=== PATIENT | male | born 1965 | race Caucasian/White ===

== ENCOUNTER 2016-10-09 14:49 | Emergency (ER) | payer BC ==
[~2016-10-09] VITALS: Ht 170.2 cm; Wt 85.0 kg
[~2016-10-09 14:49] MED LIST: ASPI81 PO; ATOR10 PO; CLOP75 PO; FISH120014 PO; ISOS30 PO; LISI-360 PO; METO25 PO; NIAC500T18 PO
[2016-10-09 14:51] VITALS: BP 166/87; PULSE 80; RESP 24; TEMP 98; O2SAT 98
--- NOTE | 2016-10-09 15:32 | PD ---
Physical Exam Date Seen by Provider: Oct 09, 2016 Time Seen by Provider: 15:28 Narrative 51 y/o male with question kidney stone. Patient states 2 week hx Hematuria and left flank pain. Now says he cannot pass urine since this am. Pain worsening since this am with radiation into left flank and testicle. +nausea. no fever. Diaphoretic. Patient states PMD diagnosed kidney stone 10 days ago. Here due to worsening pain and inability to urinate. Patients VS stable. Awaiting Bed Placement. Data Data Last Documented VS Vital Signs Date Time Temp Pulse Resp B/P Pulse Ox O2 Delivery O2 Flow Rate FiO2 10/09/16 14:51 98.0 80 24 166/87 98 Room Air [facility] Medical Record Reviewed: Yes Supervised Visit with SHEA: Yes Condition: Stable Alex Andrade Oct 09, 2016 15:32
[2016-10-09 15:40] VITALS: RESP 16; O2SAT 98
[2016-10-09] MEDS ORDERED: METO25TA3 PO (15:40)
[2016-10-09] MEDS ORDERED: PLAV75TA29 PO (15:40)
[2016-10-09] MEDS ORDERED: TAMS0.4C4 PO (15:40)
[2016-10-09] MEDS ORDERED: ATOR40TA16 PO (15:40)
[2016-10-09] MEDS ORDERED: ONDANSETRON HCL 4 MG/2 ML VIAL IV PUSH ONE (15:45)
[2016-10-09] MEDS ORDERED: SODIUM CHLOR 0.9% 1000 ML INJ 1,000 ML IV ONE ×2 (15:45→17:00)
[2016-10-09] MEDS ORDERED: KETOROLAC TROMETHAMINE 30 MG/ML (IVP) VIAL IV PUSH ONE (15:45)
--- NOTE | 2016-10-09 15:57 | PD ---
HPI Chief Complaint: Flank/Kidney Pain Time Seen by Provider: 15:34 Travel History International Travel<30 days: No Contact w/Intl Traveler<30days: No Traveled to known affect area: No History of Present Illness HPI 51 y/o male presents with left flank pain over the past 10 days when it was initially diagnosed through his primary. He states he had an abdominal x-ray. He states that the pain is worse and he is having difficulty urinating. Quality pain is sharp. Severity is severe. He denies other complaints. PFSH Past Medical History Autoimmune Disease: No Blood Disorders: No Heart Rhythm Problems: No Cancer: No Cardiac Catheterization: Yes Cardiovascular Problems: Yes (2013 05 STINT TO HEART) High Cholesterol: Yes Chest Pain: No Congestive Heart Failure: No Diabetes: No Endocrine: No Gastrointestinal Disorders: No Genitourinary: No Hypertension: Yes Immune Disorder: Yes Musculoskeletal: No Neurologic: No Psychiatric: No Respiratory: No Past Surgical History Abdominal Surgery: Yes (HERNIA REPAIR, gall bladder) Cholecystectomy: Yes Coronary Artery Bypass Graft: No Ear Surgery: No Endocrine Surgery: No (tonsilectomy) Eye Surgery: No Genitourinary Surgery: No Oral Surgery: No Other Surgery: Yes (DOUBLE HERNIA REPAIR ) Social History Alcohol Use: No Tobacco Use: No Substance Use: No Allergies-Medications (Allergen,Severity, Reaction): Coded Allergies: Penicillin (Verified Allergy, Severe, Rash, 08/11/14) Reported Meds & Prescriptions Reported Meds & Active Scripts Active Percocet (Oxycodone-Acetaminophen) 5-325 mg Tab 1 Tab PO Q6H PRN Reported Tamsulosin (Tamsulosin HCl) 0.4 Mg Cap 0.4 Mg PO HS Plavix (Clopidogrel Bisulfate) 75 Mg Tab 75 Mg PO DAILY Atorvastatin (Atorvastatin Calcium) 40 Mg Tab 40 Mg PO HS Metoprolol Tartrate 25 Mg Tab 12.5 Mg PO BID Review of Systems Except as stated in HPI: all other systems reviewed are Neg Physical Exam Narrative GENERAL: Well-nourished, well-developed patient. uncomfortable SKIN: Warm and dry. HEAD: Normocephalic and atraumatic. EYES: No injection or drainage. ENT: No nasal drainage noted. NECK: Supple, trachea midline. CARDIOVASCULAR: Regular rate and rhythm RESPIRATORY: no increased effort. No accessory muscle use. GASTROINTESTINAL: Abdomen soft, ttp on left, nondistended. EXTREMITIES: No edema. NEUROLOGICAL: Awake and alert. Motor and sensory grossly within normal limits. Normal speech. Data Data Last Documented VS Vital Signs Date Time Temp Pulse Resp B/P Pulse Ox O2 Delivery O2 Flow Rate FiO2 10/09/16 16:58 16 10/09/16 15:40 98 Room Air 10/09/16 14:51 98.0 80 166/87 Orders Complete Blood Count With Diff (10/09/16 15:35) Comprehensive Metabolic Panel (10/09/16 15:35) Urinalysis - C+S If Indicated (10/09/16 15:35) Lipase (10/09/16 15:35) Iv Access Insert/Monitor (10/09/16 15:35) Oximetry (10/09/16 15:35) Ketorolac Inj (Toradol Inj) (10/09/16 15:45) Ondansetron Inj (Zofran Inj) (10/09/16 15:45) Sodium Chlor 0.9% 1000 Ml Inj (Ns 1000 M (10/09/16 15:45) Ct Abd/Pel W/O Iv Contrast (10/09/16 ) Sodium Chlor 0.9% 1000 Ml Inj (Ns 1000 M (10/09/16 17:00) Labs Laboratory Tests Test 10/09/16 10/09/16 15:45 17:55 White Blood Count 6.5 TH/MM3 Red Blood Count 4.32 MIL/MM3 Hemoglobin 13.7 GM/DL Hematocrit 40.0 % Mean Corpuscular Volume 92.6 FL Mean Corpuscular Hemoglobin 31.8 PG Mean Corpuscular Hemoglobin 34.3 % Concent Red Cell Distribution Width 12.5 % Platelet Count 187 TH/MM3 Mean Platelet Volume 9.0 FL Neutrophils (%) (Auto) 63.1 % Lymphocytes (%) (Auto) 23.7 % Monocytes (%) (Auto) 10.0 % Eosinophils (%) (Auto) 2.7 % Basophils (%) (Auto) 0.5 % Neutrophils # (Auto) 4.1 TH/MM3 Lymphocytes # (Auto) 1.5 TH/MM3 Monocytes # (Auto) 0.6 TH/MM3 Eosinophils # (Auto) 0.2 TH/MM3 Basophils # (Auto) 0.0 TH/MM3 CBC Comment DIFF FINAL Differential Comment Sodium Level 137 MEQ/L Potassium Level 3.9 MEQ/L Chloride Level 104 MEQ/L Carbon Dioxide Level 24.9 MEQ/L Anion Gap 8 MEQ/L Blood Urea Nitrogen 14 MG/DL Creatinine 0.97 MG/DL Estimat Glomerular Filtration 81 ML/MIN Rate Random Glucose 109 MG/DL Calcium Level 9.0 MG/DL Total Bilirubin 0.6 MG/DL Aspartate Amino Transf 23 U/L (AST/SGOT) Alanine Aminotransferase 38 U/L (ALT/SGPT) Alkaline Phosphatase 71 U/L Total Protein 7.3 GM/DL Albumin 4.3 GM/DL Lipase 145 U/L Urine Color YELLOW Urine Turbidity CLEAR Urine pH 5.5 Urine Specific [place] 1.017 Urine Protein NEG mg/dL Urine Glucose (UA) NEG mg/dL Urine Ketones NEG mg/dL Urine Occult Blood MOD Urine Nitrite NEG Urine Bilirubin NEG Urine Urobilinogen LESS THAN 2.0 MG/DL Urine Leukocyte Esterase NEG MDM Medical Decision Making Medical Screen Exam Complete: Yes Emergency Medical Condition: Yes Medical Record Reviewed: Yes (pmh confirmed) Interpretation(s) CBC & BMP Diagram 10/09/16 15:45 Last 24 hours Impressions Abdomen/Pelvis CT 10/09/16 0000 Signed Impressions: Service Date/Time: Sunday, October 09, 2016 16:11 - CONCLUSION: 1. Distal obstrusting calculus on the left measuring 5 mm. 2. Diverticulosis. 3. Fat-containing umbilical hernia. 4. Cholecystectomy. Pete Castillo MD ua no uti Differential Diagnosis stone, uti, pancreatitis, acute renal failure... Narrative Course will check labs, ua, ct and dose with ivf, zofran, toradol and reeval ed workup with kidney stone with hydronephrosis. Patient with normal renal function, no UTI, pain improved and wanting to go home.Patient denies any new complaints and states that they are feeling better. Patient happy with care, all questions answered. Patient knows that follow up is incumbent on them and to return to the emergency room immediately if new or worsening symptoms develop. Patient given strict return precautions, vitals reviewed and are normal , agrees to further workup as an outpatient. Diagnosis Primary Impression: Kidney stone Additional Impression: Hydronephrosis Qualified Code: N13.30 - Hydronephrosis, unspecified hydronephrosis type Referrals: Urologist 1 day Patient Instructions: General Instructions Additional Instructions: return as needed, percocet as needed for severe pain-don't take while driving Med/Other Pt SpecificInfo: Prescription(s) given Scripts Oxycodone-Acetaminophen (Percocet)5-325 mg Tab1 Tab PO Q6H PRN (PAIN) #15 TAB Ref 0 Prov:Nia Navarrete MD 10/09/16 Disposition: 01 DISCHARGE HOME Condition: Stable Nia Navarrete MD Oct 09, 2016 15:57 Nia Navarrete MD Oct 09, 2016 15:57
[2016-10-09 16:24] LABS: AUTOMATED NEUTROPHIL # 4.1 TH/MM3 (1.8-7.7); BASOPHIL % 0.5 % (0.0-2.0); EOSINOPHIL # 0.2 TH/MM3 (0-0.4); EOSINOPHIL % 2.7 % (0.0-4.0); HEMO FLAGS DIFF FINAL; LYMPH % 23.7 % (9.0-44.0); LYMPHOCYTE # 1.5 TH/MM3 (1.0-4.8); MEAN CELL VOLUME 92.6 FL (80.0-100.0); MEAN CORPUSCULAR HEMOGLOBIN 31.8 PG (27.0-34.0); MEAN CORPUSCULAR HGB CONC 34.3 % (32.0-36.0); NEUT % 63.1 % (16.0-70.0); PLATELET COUNT 187 TH/MM3 (150-450); RED BLOOD COUNT 4.32 MIL/MM3 (4.50-5.90); RED CELL DISTRIBUTION WIDTH 12.5 % (11.6-17.2); WHITE BLOOD COUNT 6.5 TH/MM3 (4.0-11.0)
--- NOTE | 2016-10-09 16:29 | RADRPT ---
EXAM DATE/TIME: 10/09/2016 16:11 CORRECTION Corrected on: October 09, 2016; [facility] COMPARISON: No previous studies available for comparison. INDICATIONS : Left flank pain today. ORAL CONTRAST: No oral contrast ingested. RADIATION DOSE: 8.51 CTDIvol (mGy) MEDICAL HISTORY : Hypertension. Renal calculi. SURGICAL HISTORY : Cholecystectomy. hernia repair ENCOUNTER: Initial ACUITY: 1 day PAIN SCALE: 7/10 LOCATION: Left flank TECHNIQUE: Volumetric scanning of the abdomen and pelvis was performed. Using automated exposure control and ad justment of the mA and/or kV according to patient size, radiation dose was kept as low as reasonably achievable to obtain optimal diagnostic quality images. FINDINGS: LOWER LUNGS: The visualized lower lungs are clear. LIVER: Homogeneous density without lesion. There is no dilation of the biliary tree. Cholecystectomy clips . SPLEEN: Normal size without lesion. PANCREAS: Within normal limits. KIDNEYS: 5 mm distal obstructing calculus in the left ureter causing severe hydronephrosis and hydroureter. Ri ght kidney unremarkable. ADRENAL GLANDS: Within normal limits. VASCULAR: There is no aortic aneurysm. BOWEL/MESENTERY: Diverticulosis. There is no free intraperitoneal air or fluid. ABDOMINAL WALL: Fat-containing umbilical hernia. RETROPERITONEUM: There is no lymphadenopathy. BLADDER: No wall thickening or mass. REPRODUCTIVE: Within normal limits. INGUINAL: There is no lymphadenopathy or hernia. MUSCULOSKELETAL: Within normal limits for patient age. CONCLUSION: 1. Distal obstrusting calculus on the left measuring 5 mm. 2. Diverticulosis. 3. Fat-containing umbilical hernia. 4. Cholecystectomy. Pete Castillo MD on October 09, 2016 at 16:24 Board Certified Radiologist. This report was verified electronically. Pete Castillo MD on October 09, 2016 at 16:34 Board Certified Radiologist. This report was verified electronically.
[2016-10-09 16:40] LABS: ANION GAP 8 MEQ/L (5-15); AST (GOT) 23 U/L (15-37); BICARBONATE 24.9 MEQ/L (21.0-32.0); BLOOD UREA NITROGEN 14 MG/DL (7-18); CHLORIDE 104 MEQ/L (98-107); GLOMERULAR FILTRATION RATE 81 ML/MIN (>89); POTASSIUM 3.9 MEQ/L (3.5-5.1); SODIUM (NA) 137 MEQ/L (136-145)
[2016-10-09 16:41] LABS: ALT (GPT) 38 U/L (12-78)
[2016-10-09 16:43] LABS: ALKALINE PHOSPHATASE 71 U/L (45-117); TOTAL BILIRUBIN ADULT 0.6 MG/DL (0.2-1.0)
[2016-10-09 16:58] VITALS: RESP 16
[2016-10-09 18:22] LABS: BLOOD, URINE MOD (NEG); GLUCOSE,URINE NEG (NEG); KETONE, URINE NEG (NEG); NITRITE,URINE NEG (NEG); PH, URINE 5.5 (5.0-8.5); URINE COLOR YELLOW (YELLW/STRAW)
[2016-10-09] MEDS ORDERED: PERC5TAB12 PO (18:32)
[2016-10-09 18:45] LABS: CULTURE IF INDICATED CULT NOT INDICATED; SQUAMOUS EPITHELIAL CELL URINE 0-5 /hpf (0-5); WBC, URINE 0-2 /hpf (0-5)
== END 2016-10-09 18:54 | disposition home or self-care (01) ==
LOC: NEPE 14:49
DX: N13.2 Hydronephrosis with renal and ureteral calculous obstruction (principal); E78.00 Pure hypercholesterolemia, unspecified; I10 Essential (primary) hypertension
CPT/HCPCS: 74176; 80053; 81001; 83690; 85025; 96361; 96374; 96375; 99285; J1885; J2405; J7030

== ENCOUNTER 2016-10-30 00:04 | Emergency (ER) | payer BC ==
[~2016-10-30] VITALS: Ht 170.2 cm; Wt 86.0 kg
[~2016-10-30 00:04] MED LIST changes: -ASPI81 PO; -ATOR10 PO; +ATOR40TA16 PO; -CLOP75 PO; -FISH120014 PO; -ISOS30 PO; -LISI-360 PO; -METO25 PO; +METO25TA3 PO; -NIAC500T18 PO; +PERC5TAB12 PO; +PLAV75TA29 PO; +TAMS0.4C4 PO
[2016-10-30 00:06] VITALS: BP 171/92; PULSE 81; RESP 16; TEMP 97.6; O2SAT 98
[2016-10-30] MEDS ORDERED: SODIUM CHLOR 0.9% 1000 ML INJ 1,000 ML IV ONE (00:22)
[2016-10-30] MEDS ORDERED: SODIUM CHLORIDE 0.9% FLUSH 10 ML FLUSH IVF PRN (00:30)
[2016-10-30] MEDS ORDERED: KETOROLAC TROMETHAMINE 30 MG/ML (IVP) VIAL IVP ONE (00:30)
[2016-10-30] MEDS ORDERED: ONDANSETRON HCL 4 MG/2 ML VIAL IVP ONE (00:30)
[2016-10-30] MEDS ORDERED: HYDROmorphone HCL PF 1 MG/ML VIAL IVS ONE (00:30)
[2016-10-30] MEDS ORDERED: TAMSULOSIN HCL 0.4 MG CAP PO ONE (00:45)
[2016-10-30] MEDS ORDERED: ASPI81CH CHEW (00:45)
[2016-10-30] MEDS ORDERED: BP MED PO (00:47)
[2016-10-30 00:48] LABS: BASOPHIL % 0.5 % (0.0-2.0); EOSINOPHIL # 0.3 TH/MM3 (0-0.4); EOSINOPHIL % 4.3 % (0.0-4.0); HEMATOCRIT 38.6 % (39.0-51.0); HEMO FLAGS DIFF FINAL; LYMPH % 33.5 % (9.0-44.0); MEAN CELL VOLUME 93.2 FL (80.0-100.0); MEAN CORPUSCULAR HEMOGLOBIN 32.2 PG (27.0-34.0); MEAN CORPUSCULAR HGB CONC 34.6 % (32.0-36.0); MONO % 9.5 % (0.0-8.0); NEUT % 52.2 % (16.0-70.0); PLATELET COUNT 204 TH/MM3 (150-450); RED BLOOD COUNT 4.14 MIL/MM3 (4.50-5.90); RED CELL DISTRIBUTION WIDTH 12.5 % (11.6-17.2); WHITE BLOOD COUNT 5.8 TH/MM3 (4.0-11.0)
--- NOTE | 2016-10-30 00:56 | RADRPT ---
EXAM DATE/TIME: 10/30/2016 00:30 [facility] COMPARISON: No previous studies available for comparison. INDICATIONS : Left flank pain. ORAL CONTRAST: No oral contrast ingested. RADIATION DOSE: 15.67 CTDIvol (mGy) MEDICAL HISTORY : Cardiovascular disease. Hypertension. Hernia. SURGICAL HISTORY : Cholecystectomy. Tonsillectomy.Hernia repair. ENCOUNTER: Initial ACUITY: 1 day PAIN SCALE: 10/10 LOCATION: Left flank TECHNIQUE: Volumetric scanning of the abdomen and pelvis was performed. Using automated exposure control and ad justment of the mA and/or kV according to patient size, radiation dose was kept as low as reasonably achievable to obtain optimal diagnostic quality images. DICOM format image data is available electro nically for review and comparison. FINDINGS: LOWER LUNGS: The visualized lower lungs are clear. LIVER: Homogeneous density without lesion. There is no dilation of the biliary tree. Cholecystectomy clips. SPLEEN: Normal size without lesion. PANCREAS: Within normal limits. KIDNEYS: Normal in size and shape. There is no mass, stone, or hydronephrosis on the right. Moderate hydronep hrosis on the left secondary to a distal left ureteral calculus measuring 5 mm.. ADRENAL GLANDS: Within normal limits. VASCULAR: There is no aortic aneurysm. BOWEL/MESENTERY: Scattered diverticulosis without diverticulitis. There is no free intraperitoneal air or fluid. ABDOMINAL WALL: Fat containing abdominal wall hernia in the periumbilical region and slightly superiorly. RETROPERITONEUM: There is no lymphadenopathy. BLADDER: No wall thickening or mass. REPRODUCTIVE: Within normal limits. INGUINAL: There is no lymphadenopathy or hernia. MUSCULOSKELETAL: Within normal limits for patient age. CONCLUSION: 1. Moderate obstructive uropathy on the left secondary to distal ureteral calculus measuring 5 mm. 2. Status post cholecystectomy. 3. Fat-containing abdominal wall hernias. 4. Scattered diverticulosis without diverticulitis. Pete Castillo MD on October 30, 2016 at 0:52 Board Certified Radiologist. This report was verified electronically.
[2016-10-30 01:22] LABS: ALKALINE PHOSPHATASE 75 U/L (45-117); TOTAL BILIRUBIN ADULT 0.4 MG/DL (0.2-1.0)
[2016-10-30 01:25] LABS: ALT (GPT) 42 U/L (12-78); ANION GAP 7 MEQ/L (5-15); AST (GOT) 28 U/L (15-37); BICARBONATE 29.5 MEQ/L (21.0-32.0); BLOOD UREA NITROGEN 15 MG/DL (7-18); CHLORIDE 105 MEQ/L (98-107); GLOMERULAR FILTRATION RATE 63 ML/MIN (>89); POTASSIUM 3.9 MEQ/L (3.5-5.1); SODIUM (NA) 141 MEQ/L (136-145)
--- NOTE | 2016-10-30 01:30 | PD ---
HPI Chief Complaint: Flank/Kidney Pain Time Seen by Provider: 00:22 Travel History International Travel<30 days: No Contact w/Intl Traveler<30days: No Traveled to known affect area: No History of Present Illness HPI 51-year-old male came to the emergency room with history of severe left flank pain going down to his testicular area. Patient says he has history of kidney stones and has passed multiple stones. He was in this emergency room 3 weeks ago and was told he had a 5 mm stone on the left side. Patient says his pain had subsided since then but then came back again about 3 hours ago. He's vomited numerous times. He looks to be in significant discomfort. No history of fever or chills. No history of hematuria. [facility], [facility] Past Medical History Narrative Medical List of his past medical, surgical, social and family history is reviewed from the nursing note. Autoimmune Disease: No Blood Disorders: No Heart Rhythm Problems: No Cancer: No Cardiac Catheterization: Yes Cardiovascular Problems: Yes (2013 05 STINT TO HEART) High Cholesterol: Yes Chest Pain: No Congestive Heart Failure: No Diabetes: No Diminished Hearing: No Endocrine: No Gastrointestinal Disorders: No Genitourinary: No Hypertension: Yes Immune Disorder: Yes Implanted Vascular Access Dvce: Yes Musculoskeletal: No Neurologic: No Psychiatric: No Respiratory: No Past Surgical History Abdominal Surgery: Yes (HERNIA REPAIR, gall bladder) Cholecystectomy: Yes Coronary Artery Bypass Graft: No Ear Surgery: No Eye Surgery: No Genitourinary Surgery: No Oral Surgery: No Other Surgery: Yes (DOUBLE HERNIA REPAIR ) Social History Alcohol Use: No Tobacco Use: No Substance Use: No Allergies-Medications (Allergen,Severity, Reaction): Coded Allergies: Penicillin (Verified Allergy, Severe, Rash, 10/30/16) Comments List of his allergies reviewed from the nursing note. Reported Meds & Prescriptions Reported Meds & Active Scripts Active Zofran Odt (Ondansetron Odt) 4 Mg Tab 4 Mg SL Q6HR PRN Flomax (Tamsulosin HCl) 0.4 Mg Cap 0.4 Mg PO HS Hydrocodone-Acetaminophen 7.5-300 Mg Tab 1 Tab PO Q6H PRN Reported [2nd BP MED] 10 Mg PO DAILY Aspirin 81 Mg Chew 81 Mg CHEW DAILY Plavix (Clopidogrel Bisulfate) 75 Mg Tab 75 Mg PO DAILY Atorvastatin (Atorvastatin Calcium) 40 Mg Tab 40 Mg PO HS Metoprolol Tartrate 25 Mg Tab 12.5 Mg PO BID Narrative Medication List of his home medications reviewed from the nursing note. Review of Systems Except as stated in HPI: all other systems reviewed are Neg Physical Exam Narrative GENERAL: Awake, alert, significant distress SKIN: Pale and diaphoretic HEAD: Atraumatic. Normocephalic. EYES: Pupils equal and round. No scleral icterus. No injection or drainage. ENT: No nasal bleeding or discharge. Mucous membranes pink and moist. NECK: Trachea midline. No JVD. CARDIOVASCULAR: Regular rate and rhythm. No murmur appreciated. RESPIRATORY: No accessory muscle use. Clear to auscultation. Breath sounds equal bilaterally. GASTROINTESTINAL: Abdomen soft, non-tender, nondistended. Hepatic and splenic margins not palpable. MUSCULOSKELETAL: No obvious deformities. No clubbing. No cyanosis. No edema. NEUROLOGICAL: Awake and alert. No obvious cranial nerve deficits. Motor grossly within normal limits. Normal speech. PSYCHIATRIC: Appropriate mood and affect; insight and judgment normal. Data Data Last Documented VS Orders Complete Blood Count With Diff (10/30/16:22) Comprehensive Metabolic Panel (10/30/16 00:22) Urinalysis - C+S If Indicated (10/30/16 00:22) Ct Abd/Pel W/O Iv Contrast (10/30/16:22) Ecg Monitoring (10/30/16:22) Iv Access Insert/Monitor (10/30/16:22) Ketorolac Inj (Toradol Inj) (10/30/16 00:30) Ondansetron Inj (Zofran Inj) (10/30/16 00:30) Sodium Chloride 0.9% Flush (Ns Flush) (10/30/16 00:30) Sodium Chlor 0.9% 1000 Ml Inj (Ns 1000 M (10/30/16 00:22) Hydromorphone Pf Inj (Dilaudid Pf Inj) (10/30/16 00:30) Tamsulosin (Flomax) (10/30/16 00:45) Morphine Inj (Morphine Inj) (10/30/16 02:30) Labs Laboratory Tests Test 10/30/16 10/30/16 00:35 01:34 White Blood Count 5.8 TH/MM3 Red Blood Count 4.14 MIL/MM3 Hemoglobin 13.4 GM/DL Hematocrit 38.6 % Mean Corpuscular Volume 93.2 FL Mean Corpuscular Hemoglobin 32.2 PG Mean Corpuscular Hemoglobin 34.6 % Concent Red Cell Distribution Width 12.5 % Platelet Count 204 TH/MM3 Mean Platelet Volume 8.9 FL Neutrophils (%) (Auto) 52.2 % Lymphocytes (%) (Auto) 33.5 % Monocytes (%) (Auto) 9.5 % Eosinophils (%) (Auto) 4.3 % Basophils (%) (Auto) 0.5 % Neutrophils # (Auto) 3.0 TH/MM3 Lymphocytes # (Auto) 2.0 TH/MM3 Monocytes # (Auto) 0.6 TH/MM3 Eosinophils # (Auto) 0.3 TH/MM3 Basophils # (Auto) 0.0 TH/MM3 CBC Comment DIFF FINAL Differential Comment Sodium Level 141 MEQ/L Potassium Level 3.9 MEQ/L Chloride Level 105 MEQ/L Carbon Dioxide Level 29.5 MEQ/L Anion Gap 7 MEQ/L Blood Urea Nitrogen 15 MG/DL Creatinine 1.20 MG/DL Estimat Glomerular Filtration 63 ML/MIN Rate Random Glucose 117 MG/DL Calcium Level 9.2 MG/DL Total Bilirubin 0.4 MG/DL Aspartate Amino Transf 28 U/L (AST/SGOT) Alanine Aminotransferase 42 U/L (ALT/SGPT) Alkaline Phosphatase 75 U/L Total Protein 7.5 GM/DL Albumin 4.3 GM/DL Urine Color YELLOW Urine Turbidity HAZY Urine pH 6.5 Urine Specific [place] 1.023 Urine Protein TRACE mg/dL Urine Glucose (UA) NEG mg/dL Urine Ketones NEG mg/dL Urine Occult Blood MOD Urine Nitrite NEG Urine Bilirubin NEG Urine Urobilinogen LESS THAN 2.0 MG/DL Urine Leukocyte Esterase NEG Urine RBC 137 /hpf Urine WBC 8 /hpf Urine Amorphous Sediment MOD Urine Bacteria RARE /hpf Urine Mucus FEW /lpf Microscopic Urinalysis Comment CULT NOT INDICATED MDM Medical Decision Making Medical Screen Exam Complete: Yes Emergency Medical Condition: Yes Medical Record Reviewed: Yes Differential Diagnosis Renal colic, pyelonephritis, testicular torsion Narrative Course 1:29 AM given the fact that patient has history of multiple renal stones in the classic history I decided to do a CT scan which does show a 5 mm stone at the UVJ with moderate obstruction. Blood test results otherwise are within normal limit. Awaiting for the UA. Patient was adequately pain medicated. I've given him by mouth Flomax as well. I'll reassess him in a bit. 2:[address] scan was read as 5 mm stone at the left UVJ with moderate obstruction. UA is negative for UTI. I reassessed the patient and he says his pain is down to 2. He is comfortable going home. I've given him instructions. He will go home with prescription. Procedures EKG Prior to Arrival: No Diagnosis Primary Impression: Ureteral colic Additional Impression: Hydroureter Referrals: Tank Hernandez MD 2 days Additional Instructions: Please return to the ER if the condition worsens or any other new concerns. Take the medications as per the prescription direction. Please call the urologist office on Monday to get an appointment as early as possible. Drink lots of fluid. Med/Other Pt SpecificInfo: Prescription(s) given Scripts Ondansetron Odt (Zofran Odt)4 Mg Tab4 Mg SL Q6HR PRN (Nausea/Vomiting) #30 TAB Ref 0 Prov:Bandar Meier MD 10/30/16 Tamsulosin (Flomax)0.4 Mg Cap0.4 Mg PO HS #30 CAP Ref 0 Prov:Bandar Meier MD 10/30/16 Hydrocodone-Acetaminophen 7.5-300 Mg Tab1 Tab PO Q6H PRN (PAIN) #15 TAB Ref 0 Prov:Bandar Meier MD 10/30/16 Disposition: DISCHARGE HOME Condition: Stable Bandar Meier MD Oct 30, 2016 01:30 Prov:Bandar Meier MD 10/30/16 Disposition: DISCHARGE HOME Condition: Bandar Johns MD Oct 30, 2016 01:30
[2016-10-30 02:20] LABS: BACTERIA, URINE RARE /hpf; BLOOD, URINE MOD (NEG); COMMENT (UR) CULT NOT INDICATED; CULTURE IF INDICATED CULT NOT INDICATED; GLUCOSE,URINE NEG (NEG); KETONE, URINE NEG (NEG); MUCUS URINE FEW /lpf (OCC); NITRITE,URINE NEG (NEG); PH, URINE 6.5 (5.0-8.5); URINE COLOR YELLOW (YELLW/STRAW)
[2016-10-30] MEDS ORDERED: TAMS5CAP PO (02:29)
[2016-10-30] MEDS ORDERED: HYDR-2376 PO (02:29)
[2016-10-30] MEDS ORDERED: MORPHINE SULFATE 8 MG/ML INJ IV PUSH ONE (02:30)
[2016-10-30] MEDS ORDERED: ZOFR4TAB3 SL (02:30)
== END 2016-10-30 03:12 | disposition home or self-care (01) ==
LOC: NEPE 00:04
DX: N23 Unspecified renal colic (principal); N13.4 Hydroureter
CPT/HCPCS: 74176; 80053; 81001; 85025; 96374; 96375; 99285; J1170; J1885; J2270; J2405; J7030

== ENCOUNTER 2017-02-24 12:51 | Emergency (ER) | payer BC ==
[~2017-02-24] VITALS: Ht 170.2 cm; Wt 90.0 kg
[~2017-02-24 12:51] MED LIST changes: +ASPI81CH CHEW; +BP MED PO; +HYDR-2376 PO; -PERC5TAB12 PO; -TAMS0.4C4 PO; +TAMS5CAP PO; +ZOFR4TAB3 SL
[2017-02-24 12:54] VITALS: BP 177/100; PULSE 83; RESP 20; TEMP 98.6; O2SAT 96
--- NOTE | 2017-02-24 13:26 | PD ---
HPI Chief Complaint: Flank/Kidney Pain Time Seen by Provider: 13:11 Travel History International Travel<30 days: No Contact w/Intl Traveler<30days: No Traveled to known affect area: No History of Present Illness HPI This patient complains of left flank pain. It radiates to his left groin. He has history of multiple kidney stones and this feels similar. He denies fever or injury. Symptoms severity is moderate to severe in nature. Duration one day. No alleviating factors. There are no exacerbating factors. He had an outpatient x-ray yesterday but has no idea what it showed. PFSH Past Medical History Autoimmune Disease: No Blood Disorders: No Heart Rhythm Problems: No Cancer: No Cardiac Catheterization: Yes Cardiovascular Problems: Yes (2013 05 STINT TO HEART) High Cholesterol: Yes Chest Pain: No Congestive Heart Failure: No Diabetes: No Diminished Hearing: No Endocrine: No Gastrointestinal Disorders: No Genitourinary: No Hypertension: Yes Immune Disorder: Yes Implanted Vascular Access Dvce: Yes Musculoskeletal: No Neurologic: No Psychiatric: No Respiratory: No Tetanus Vaccination: Unknown Influenza Vaccination: No Past Surgical History Abdominal Surgery: Yes (HERNIA REPAIR) Cholecystectomy: Yes Coronary Artery Bypass Graft: No Ear Surgery: No Eye Surgery: No Genitourinary Surgery: No Oral Surgery: No Tonsillectomy: Yes Other Surgery: Yes (DOUBLE HERNIA REPAIR ) Social History Alcohol Use: No Tobacco Use: No Substance Use: No Allergies-Medications (Allergen,Severity, Reaction): Coded Allergies: penicillin G (Unverified Allergy, Severe, Rash, 02/24/17) Reported Meds & Prescriptions Reported Meds & Active Scripts Active Percocet (Oxycodone-Acetaminophen) 10-325 mg Tab 1 Tab PO Q6H PRN Flomax (Tamsulosin HCl) 0.4 Mg Cap 0.4 Mg PO HS Reported [2nd BP MED] 10 Mg PO DAILY Aspirin 81 Mg Chew 81 Mg CHEW DAILY Plavix (Clopidogrel Bisulfate) 75 Mg Tab 75 Mg PO DAILY Atorvastatin (Atorvastatin Calcium) 40 Mg Tab 40 Mg PO HS Metoprolol Tartrate 25 Mg Tab 12.5 Mg PO BID Review of Systems General / Constitutional: No: Fever Eyes: No: Visual changes HENT: No: Headaches Cardiovascular: No: Chest Pain or Discomfort Respiratory: No: Shortness of Breath Gastrointestinal: Positive: Nausea, No: Abdominal Pain Genitourinary: Positive: Flank Pain, No: Dysuria Musculoskeletal: Positive: Pain Skin: No Rash Neurologic: No: Weakness Psychiatric: No: Depression Endocrine: No: Polydipsia Hematologic/Lymphatic: No: Easy Bruising Physical Exam Narrative GENERAL: Well-nourished, well-developed patient with severe left flank pain . SKIN: Focused skin assessment reveals no rash and nodules. Skin is Warm and dry. HEAD: Atraumatic. Normocephalic. EYES: Pupils equal and round. No scleral icterus. No injection or drainage. ENT: No nasal bleeding or discharge. Mucous membranes pink and moist. NECK: Trachea midline. No JVD. CARDIOVASCULAR: Regular rate and rhythm. No murmur appreciated. RESPIRATORY: No accessory muscle use. Clear to auscultation. Breath sounds equal bilaterally. GASTROINTESTINAL: Abdomen soft, non-tender, nondistended. Hepatic and splenic margins not palpable. MUSCULOSKELETAL: No obvious deformities. No clubbing. No cyanosis. No edema. NEUROLOGICAL: Awake and alert. No obvious cranial nerve deficits. Motor grossly within normal limits. Normal speech. PSYCHIATRIC: Appropriate mood and affect; insight and judgment normal. Data Data Last Documented VS Vital Signs Date Time Temp Pulse Resp B/P (MAP) Pulse Ox O2 Delivery O2 Flow Rate FiO2 02/24/17 12:54 98.6 83 20 177/100 (125) [address] Abd/Pel W/O Iv Contrast (02/24/17 ) Urinalysis - C+S If Indicated (02/24/17 13:20) Ondansetron Inj (Zofran Inj) (02/24/17 13:30) Hydromorphone Pf Inj (Dilaudid Pf Inj) (02/24/17 13:30) Complete Blood Count With Diff (02/24/17 13:20) Basic Metabolic Panel (Bmp) (02/24/17 13:20) Iv Access Insert/Monitor (02/24/17 13:20) Hydromorphone Pf Inj (Dilaudid Pf Inj) (02/24/17 13:31) Cath For Specimen (02/24/17 13:35) Hydromorphone Pf Inj (Dilaudid Pf Inj) (02/24/17 15:15) Labs Laboratory Tests Test 02/24/17 13:25 02/24/17 13:40 White Blood Count 6.9 TH/MM3 Red Blood Count 4.24 MIL/MM3 Hemoglobin 13.8 GM/DL Hematocrit 40.0 % Mean Corpuscular Volume 94.4 FL Mean Corpuscular Hemoglobin 32.5 PG Mean Corpuscular Hemoglobin Concent 34.4 % Red Cell Distribution Width 12.3 % Platelet Count 202 TH/MM3 Mean Platelet Volume 8.9 FL Neutrophils (%) (Auto) 61.5 % Lymphocytes (%) (Auto) 26.1 % Monocytes (%) (Auto) 8.1 % Eosinophils (%) (Auto) 3.7 % Basophils (%) (Auto) 0.6 % Neutrophils # (Auto) 4.3 TH/MM3 Lymphocytes # (Auto) 1.8 TH/MM3 Monocytes # (Auto) 0.6 TH/MM3 Eosinophils # (Auto) 0.3 TH/MM3 Basophils # (Auto) 0.0 TH/MM3 CBC Comment DIFF FINAL Differential Comment Blood Urea Nitrogen 14 MG/DL Creatinine 1.08 MG/DL Random Glucose 92 MG/DL Calcium Level 9.1 MG/DL Sodium Level 137 MEQ/L Potassium Level 3.9 MEQ/L Chloride Level 105 MEQ/L Carbon Dioxide Level 24.2 MEQ/L Anion Gap 8 MEQ/L Estimat Glomerular Filtration Rate 72 ML/MIN Urine Color YELLOW Urine Turbidity CLEAR Urine pH 6.0 Urine Specific Loving 1.029 Urine Protein TRACE mg/dL Urine Glucose (UA) NEG mg/dL Urine Ketones NEG mg/dL Urine Occult Blood SMALL Urine Nitrite NEG Urine Bilirubin NEG Urine Urobilinogen LESS THAN 2.0 MG/DL Urine Leukocyte Esterase NEG Urine RBC 57 /hpf Urine WBC 3 /hpf Urine Squamous Epithelial Cells <1 /hpf Urine Transitional Epithelial Cells <1 /hpf Urine Hyaline Casts 1 /lpf Urine Mucus FEW /lpf Microscopic Urinalysis Comment CULT NOT INDICATED MDM Medical Decision Making Medical Screen Exam Complete: Yes Emergency Medical Condition: Yes Medical Record Reviewed: Yes Differential Diagnosis Kidney stone, sciatica, lumbar strain Narrative Course I have reviewed the patient's electronic medical record. Patient was here October 2016 for kidney stone which was 5 mm with hydronephrosis IV placed CBC is normal Metabolic profile is normal Urinalysis shows no infection and [address] of abdomen and pelvis looks the same as it did in October. He has a 5 mm left- sided stone in the same position I gave him IV Zofran and IV Dilaudid for symptom relief He got relief but was still hurting I gave him a second dose of medicine On recheck he is clinically doing well We'll give him the name and number of urologist to follow up with I wrote him some strong pain medication He has nausea medicine at home Diagnosis Primary Impression: Kidney stone Additional Impression: Ureteral colic Additional Instructions: The patient was advised to call the office of Dr. Silva for kidney stone follow- up The patient was warned about potential sedation for the medications they will receive on prescription. Med/Other Pt SpecificInfo: Prescription(s) given Scripts Oxycodone-Acetaminophen (Percocet) 10-325 mg Tab 1 TAB PO Q6H Y for PAIN, #20 TAB 0 Refills Prov: Davon Kapadia MD 02/24/17 Disposition: 01 DISCHARGE HOME Condition: Stable Davon Kapadia MD Feb 24, 2017 13:26
[2017-02-24] MEDS ORDERED: HYDROmorphone HCL PF 1 MG/ML VIAL IVS ONE (13:30)
[2017-02-24] MEDS ORDERED: ONDANSETRON HCL 4 MG/2 ML VIAL IV ONE (13:30)
[2017-02-24] MEDS ORDERED: HYDROmorphone HCL PF 1 MG/ML VIAL ONE (13:31)
[2017-02-24 13:56] LABS: AUTOMATED NEUTROPHIL # 4.3 TH/MM3 (1.8-7.7); BASOPHIL % 0.6 % (0.0-2.0); EOSINOPHIL # 0.3 TH/MM3 (0-0.4); EOSINOPHIL % 3.7 % (0.0-4.0); HEMO FLAGS DIFF FINAL; LYMPH % 26.1 % (9.0-44.0); LYMPHOCYTE # 1.8 TH/MM3 (1.0-4.8); MEAN CELL VOLUME 94.4 FL (80.0-100.0); MEAN CORPUSCULAR HEMOGLOBIN 32.5 PG (27.0-34.0); MEAN CORPUSCULAR HGB CONC 34.4 % (32.0-36.0); MONO % 8.1 % (0.0-8.0); NEUT % 61.5 % (16.0-70.0); PLATELET COUNT 202 TH/MM3 (150-450); RED BLOOD COUNT 4.24 MIL/MM3 (4.50-5.90); RED CELL DISTRIBUTION WIDTH 12.3 % (11.6-17.2); WHITE BLOOD COUNT 6.9 TH/MM3 (4.0-11.0)
[2017-02-24 13:57] LABS: BLOOD, URINE SMALL (NEG); GLUCOSE,URINE NEG (NEG); HYALINE CAST, URINE 1 /lpf (RARE); KETONE, URINE NEG (NEG); MUCUS URINE FEW /lpf (OCC); NITRITE,URINE NEG (NEG); SQUAMOUS EPITHELIAL CELL URINE <1 /hpf (0-5); TRANSITIONAL EPI CELLS, URINE <1 /hpf; URINE COLOR YELLOW (YELLW/STRAW)
[2017-02-24 13:58] LABS: COMMENT (UR) CULT NOT INDICATED; CULTURE IF INDICATED CULT NOT INDICATED
--- NOTE | 2017-02-24 14:01 | RADRPT ---
EXAM DATE/TIME: 02/24/2017 13:38 [facility] COMPARISON: CT ABDOMEN & PELVIS W/O CONTRAST, October 30, 2016, 0:30. INDICATIONS : Left flank pain. ORAL CONTRAST: No oral contrast ingested. RADIATION DOSE: 12.62 CTDIvol (mGy) MEDICAL HISTORY : Renal calculi. Hypertension. Cardiovascular disease SURGICAL HISTORY : Cholecystectomy. ENCOUNTER: Initial ACUITY: 1 day PAIN SCALE: 5/10 LOCATION: Left flank TECHNIQUE: Volumetric scanning of the abdomen and pelvis was performed. Using automated exposure control and ad justment of the mA and/or kV according to patient size, radiation dose was kept as low as reasonably achievable to obtain optimal diagnostic quality images. DICOM format image data is available electro nically for review and comparison. The lack of IV contrast limits the diagnosis for certain organ pa thology. FINDINGS: LOWER LUNGS: The visualized lower lungs are clear. LIVER: Homogeneous density without lesion. There is no dilation of the biliary tree. No gallbladder.. SPLEEN: Normal size without lesion. PANCREAS: Within normal limits. KIDNEYS: Normal in size and shape. There is a tiny 2 mm stone lower pole right kidney not causing obstruction. No hydronephrosis of the right kidney. Right ureter is nondilated. There is moderate hydronephrosis of the left kidney. The left ureter is dilated down to the bladder where there is a 5 mm stone causin g obstruction. This was present prior examination. ADRENAL GLANDS: Within normal limits. VASCULAR: There is no aortic aneurysm. BOWEL/MESENTERY: The stomach, small bowel, and colon demonstrate no acute abnormality. There is no free intraperitone al air or fluid. ABDOMINAL WALL: Umbilical hernia containing fat. RETROPERITONEUM: There is no lymphadenopathy. BLADDER: Decompressed. Stone in distal left ureter. REPRODUCTIVE: Prostate is enlarged at 4.4 cm. There are some chronic calcifications the prostate. INGUINAL: There is no lymphadenopathy or hernia. MUSCULOSKELETAL: Within normal limits for patient age. Stable degenerative changes. CONCLUSION: 1. There is a 5 mm stone in the distal left ureter causing moderate hydronephrosis to the left collec ting system. These findings were present on the prior study without significant change. 2. Tiny 2 mm stone lower pole right kidney not causing obstruction. 3. Umbilical hernia containing fat Nestor Mendieta MD on February 24, 2017 at 13:55 Board Certified Radiologist. This report was verified electronically.
[2017-02-24 14:16] LABS: BICARBONATE 24.2 MEQ/L (21.0-32.0); POTASSIUM 3.9 MEQ/L (3.5-5.1)
[2017-02-24] MEDS ORDERED: HYDROmorphone HCL PF 2 MG/ML VIAL IVS ONE (15:15)
[2017-02-24 16:00] VITALS: BP 140/72; PULSE 81; RESP 16; O2SAT 99
[2017-02-24] MEDS ORDERED: PERC10TA27 PO (16:13)
[2017-03-07] MEDS ORDERED: LISI10TA3 PO (19:45)
[2017-03-07] MEDS ORDERED: ATOR20TA15 PO (19:45)
== END 2017-02-24 17:01 | disposition home or self-care (01) ==
LOC: NEPE 12:51
DX: N13.2 Hydronephrosis with renal and ureteral calculous obstruction (principal)
CPT/HCPCS: 74176; 80048; 81001; 85025; 96374; 96375; 96376; 99285; J1170; J2405; P9612

== ENCOUNTER 2017-03-13 03:47 | Emergency (ER) | payer BC ==
[~2017-03-13] VITALS: Ht 170.2 cm; Wt 85.5 kg
[~2017-03-13 03:47] MED LIST changes: +ASPI-516 CHEW; -ASPI81CH CHEW; +ATOR20TA15 PO; -ATOR40TA16 PO; -BP MED PO; -HYDR-2376 PO; +LISI10TA3 PO; +PERC10TA27 PO; -ZOFR4TAB3 SL
[2017-03-13 03:48] VITALS: BP 160/93; PULSE 73; RESP 16; TEMP 97.9; O2SAT 96
[2017-03-13] MEDS ORDERED: SODIUM CHLORID 0.9% 500 ML INJ 500 ML IV ONE (04:30)
[2017-03-13] MEDS ORDERED: KETOROLAC TROMETHAMINE 30 MG/ML (IVP) VIAL IV PUSH ONE (04:30)
[2017-03-13 04:41] VITALS: RESP 16; O2SAT 98
[2017-03-13 04:42] LABS: AUTOMATED NEUTROPHIL # 5.2 TH/MM3 (1.8-7.7); BASOPHIL % 0.6 % (0.0-2.0); EOSINOPHIL # 0.4 TH/MM3 (0-0.4); EOSINOPHIL % 4.4 % (0.0-4.0); HEMATOCRIT 40.7 % (39.0-51.0); HEMO FLAGS DIFF FINAL; LYMPH % 24.9 % (9.0-44.0); LYMPHOCYTE # 2.1 TH/MM3 (1.0-4.8); MEAN CELL VOLUME 94.2 FL (80.0-100.0); MEAN CORPUSCULAR HEMOGLOBIN 33.1 PG (27.0-34.0); MEAN CORPUSCULAR HGB CONC 35.1 % (32.0-36.0); MONO % 8.3 % (0.0-8.0); NEUT % 61.8 % (16.0-70.0); PLATELET COUNT 219 TH/MM3 (150-450); RED BLOOD COUNT 4.32 MIL/MM3 (4.50-5.90); RED CELL DISTRIBUTION WIDTH 12.2 % (11.6-17.2); WHITE BLOOD COUNT 8.4 TH/MM3 (4.0-11.0)
--- NOTE | 2017-03-13 04:50 | PD ---
HPI Chief Complaint: Flank/Kidney Pain Time Seen by Provider: 03:59 Travel History International Travel<30 days: No Contact w/Intl Traveler<30days: No Traveled to known affect area: No History of Present Illness HPI The patient is a 51 year old male who presents to the [facility] emergency department with a history of increasing pain since having lithotripsy done on Monday by his urologist. His urologist is . The patient reports that he has been taking hydrocodone for pain, however it was causing constipation, therefore he discontinued it. He reports that he has been taking Tylenol as needed for discomfort with minimal relief. The patient reports nausea, however no vomiting. He reports that the pain seems to be worse with eating, therefore he has mainly been drinking fluids. He reports that his last bowel movement was yesterday. His last bowel movement was soft and brown. He denies having any blood in his stool or black or tarry stools. He denies having a stent placed in his ureter. He reports that he followed up with his urologist on Monday was given a slip to obtain a repeat CT scan of the abdomen and pelvis without IV contrast. The patient shows me the lab slip at this time. The patient reports that he has had intermittent blood in his urine. He reports that he has dysuria. He reports that he feels like he has to push to urinate. He reports that the pain is in the left flank and radiates to the left lower quadrant of the abdomen. On review of systems, the patient denies having any recent fevers, cough, congestion, neck pain, chest pain, shortness of breath, or neurologic symptoms. [facility] Past Medical History Narrative Medical The patient's past medical history is significant for hyperlipidemia, coronary artery disease with 2 prior stents being placed, hypertension, kidney stone Autoimmune Disease: No Blood Disorders: No Heart Rhythm Problems: No Cancer: No Cardiac Catheterization: Yes (x2) Cardiovascular Problems: Yes (Stent x1 2014) High Cholesterol: Yes Chest Pain: No Congestive Heart Failure: No Diabetes: No Diminished Hearing: No Endocrine: No Gastrointestinal Disorders: No Genitourinary: No Hypertension: Yes Immune Disorder: Yes Implanted Vascular Access Dvce: Yes Kidney Stones: Yes Musculoskeletal: No Neurologic: No Psychiatric: No Respiratory: No Immunizations Current: Yes Past Surgical History Narrative Surgical The patient's past surgical history is significant for cholecystectomy, lithotripsy, hernia repair. Abdominal Surgery: Yes (DOUBLE HERNIA REPAIR) Cholecystectomy: Yes Coronary Artery Bypass Graft: No Ear Surgery: No Eye Surgery: No Genitourinary Surgery: Yes (lithotripsy) Neurologic Surgery: No Oral Surgery: No Tonsillectomy: Yes Other Surgery: Yes (DOUBLE HERNIA REPAIR ) Social History Alcohol Use: No Tobacco Use: No Substance Use: No Allergies-Medications (Allergen,Severity, Reaction): Coded Allergies: penicillin G (Unverified Allergy, Severe, Rash, 03/13/17) Reported Meds & Prescriptions Reported Meds & Active Scripts Active Percocet (Oxycodone-Acetaminophen) 10-325 mg Tab 1 Tab PO Q6H PRN Flomax (Tamsulosin HCl) 0.4 Mg Cap 0.4 Mg PO HS Reported Lisinopril 10 Mg Tab 10 Mg PO DAILY Atorvastatin (Atorvastatin Calcium) 20 Mg Tab 20 Mg PO HS Aspirin 81 Mg Chew 81 Mg CHEW DAILY Plavix (Clopidogrel Bisulfate) 75 Mg Tab 75 Mg PO DAILY Metoprolol Tartrate 25 Mg Tab 12.5 Mg PO BID Review of Systems Except as stated in HPI: all other systems reviewed are Neg General / Constitutional: No: Fever Eyes: No: Visual changes HENT: No: Headaches Cardiovascular: No: Chest Pain or Discomfort Respiratory: No: Shortness of Breath Gastrointestinal: Positive: Nausea, Abdominal Pain, Changes in Bowel Habits ( soft compared to usual), No: Vomiting, Diarrhea, Hematochezia, Indigestion, Loss of Appetite Genitourinary: Positive: Urgency, Frequency, Dysuria, Hematuria, Flank Pain Musculoskeletal: No: Pain Skin: No Rash Neurologic: No: Weakness, Change in Mentation, Slurred Speech, Sensory Disturbance Psychiatric: No: Depression Endocrine: No: Polydipsia Hematologic/Lymphatic: No: Easy Bruising Physical Exam Narrative General: The patient is a well-developed well-nourished male in no acute distress. Head and Neck exam: Head is normocephalic atraumatic. Eyes: EOMI, pupils are equal round and reactive to light. Nose: Midline septum with pink mucous membranes Mouth: Dentition unremarkable. Moist mucus membranes. Posterior oropharynx is not erythematous. No tonsillar hypertrophy. Uvula midline. Airway patent. Neck: No palpable lymphadenopathy. No nuchal rigidity. No thyromegaly. Cardiovascular: Regular rate and rhythm without murmurs, gallops, or rubs. Lungs: Clear to auscultation bilaterally. No wheezes, rhonchi, or rales. Abdomen: Soft, with tenderness on palpation down in the left lower quadrant of the abdomen. No other tenderness on palpation of the other quadrants of the abdomen. No guarding, rebound, or rigidity. Normal bowel sounds are audible. No tenderness on palpation of McBurney's point. Extremities: No clubbing, cyanosis, or edema. 2+ pulses in all 4 extremities. No calf tenderness on palpation. Back: No spinous process tenderness to palpation. Left-sided CVA tenderness on palpation. Neurologic Exam: Grossly nonfocal. Skin Exam: No rash noted. Intact skin that is warm and dry. Data Data Last Documented VS Vital Signs Date Time Temp Pulse Resp B/P (MAP) Pulse Ox O2 Delivery O2 Flow Rate FiO2 03/13/17 05:09 75 16 157/94 (115) 98 Room Air 03/13/17 03:48 97.9 Orders Orders Complete Blood Count With Diff (03/13/17 04:29) Comprehensive Metabolic Panel (03/13/17 04:29) Prothrombin Time / Inr (Pt) (03/13/17 04:29) Act Partial Throm Time (Ptt) (03/13/17 04:29) C-Reactive Protein (Crp) (03/13/17 04:29) Lipase (03/13/17 04:29) Urinalysis - C+S If Indicated (03/13/17 04:29) Iv Access Insert/Monitor (03/13/17 04:29) Ecg Monitoring (03/13/17 04:29) Oximetry (03/13/17 04:29) Sodium Chlorid 0.9% 500 Ml Inj (Ns 500 M (03/13/17 04:30) Ketorolac Inj (Toradol Inj) (03/13/17 04:30) Ct Abd/Pel W/O Iv Contrast (03/13/17 04:50) Labs Laboratory Tests Test 03/13/17 04:20 03/13/17 04:30 Urine Color YELLOW Urine Turbidity HAZY Urine pH 6.0 Urine Specific Raphine 1.016 Urine Protein 300 mg/dL Urine Glucose (UA) NEG mg/dL Urine Ketones NEG mg/dL Urine Occult Blood LARGE Urine Nitrite NEG Urine Bilirubin NEG Urine Urobilinogen LESS THAN 2.0 MG/DL Urine Leukocyte Esterase NEG Urine RBC /hpf Urine WBC 4 /hpf Urine Squamous Epithelial Cells <1 /hpf Urine Bacteria RARE /hpf Urine Hyaline Casts 1 /lpf Urine Mucus MANY /lpf Microscopic Urinalysis Comment CULT NOT INDICATED White Blood Count 8.4 TH/MM3 Red Blood Count 4.32 MIL/MM3 Hemoglobin 14.3 GM/DL Hematocrit 40.7 % Mean Corpuscular Volume 94.2 FL Mean Corpuscular Hemoglobin 33.1 PG Mean Corpuscular Hemoglobin Concent 35.1 % Red Cell Distribution Width 12.2 % Platelet Count 219 TH/MM3 Mean Platelet Volume 8.6 FL Neutrophils (%) (Auto) 61.8 % Lymphocytes (%) (Auto) 24.9 % Monocytes (%) (Auto) 8.3 % Eosinophils (%) (Auto) 4.4 % Basophils (%) (Auto) 0.6 % Neutrophils # (Auto) 5.2 TH/MM3 Lymphocytes # (Auto) 2.1 TH/MM3 Monocytes # (Auto) 0.7 TH/MM3 Eosinophils # (Auto) 0.4 TH/MM3 Basophils # (Auto) 0.0 TH/MM3 CBC Comment DIFF FINAL Differential Comment Prothrombin Time 11.3 SEC Prothromb Time International Ratio 1.0 RATIO Activated Partial Thromboplast Time 23.1 SEC Blood Urea Nitrogen 12 MG/DL Creatinine 1.06 MG/DL Random Glucose 95 MG/DL Total Protein 8.0 GM/DL Albumin 4.2 GM/DL Calcium Level 9.4 MG/DL Alkaline Phosphatase 72 U/L Aspartate Amino Transf (AST/SGOT) 28 U/L Alanine Aminotransferase (ALT/SGPT) 35 U/L Total Bilirubin 1.1 MG/DL Sodium Level 136 MEQ/L Potassium Level 4.2 MEQ/L Chloride Level 100 MEQ/L Carbon Dioxide Level 27.1 MEQ/L Anion Gap 9 MEQ/L Estimat Glomerular Filtration Rate 73 ML/MIN C-Reactive Protein 0.44 MG/DL Lipase 97 U/L [facility] Medical Decision Making Medical Screen Exam Complete: Yes Emergency Medical Condition: Yes Medical Record Reviewed: Yes Differential Diagnosis Ureteral calculi, versus urinary obstruction, versus diverticulitis Narrative Course During the course of the patients emergency department visit, the patients history, examination, and differential diagnosis were reviewed with the patient. The patient was placed on a manager cardiac with oximetry and frequent blood pressure monitoring. The patient had IV access obtained and blood work sent for analysis. A CT scan of the abdomen and pelvis without IV contrast was ordered. The patient was initially provided normal saline a 500 mL bolus times one. Toradol 15 mg IV. The patients laboratory studies were reviewed and remarkable for a white count of 8.4, hemoglobin 14.3, platelets 219 with 8.3 monocytes, CMP is remarkable for a GFR 73, total bilirubin 1.1, C-reactive protein 0.44, lipase 97, PT 11.3, PTT 23.1, urinalysis shows large occult blood, innumerable rbc's, rare bacteria , culture not indicated. Radiology studies were reviewed and remarkable for a CT scan of the abdomen and pelvis that shows passage of the previously seen stone. Continued left hydronephrosis and hydroureter. Bladder mass cannot be excluded. Cystoscopy is recommended for further evaluation. The patient is noted to have thickening of the posterior bladder wall at the region of the trigone. The patient's prostate gland is moderately enlarged impinging on the bladder base. No abnormally enlarged lymph nodes. The patient will be given a copy of his CT scan results. The patient was instructed to continue pain medication as needed with the addition of a stool softener to assist with any symptoms of constipation. The patient is instructed to call his urologist office this morning regarding the CT scan findings for a follow-up appointment. The patient is resting comfortably and feels better, is alert and in no distress. The patients results and examination findings were discussed with the patient. The repeat examination is unremarkable and benign. The history, exam, diagnostic testing, and current condition do not suggest any significant pathology to warrant further testing, continued ED treatment, admission, or surgical evaluation at this point. The vital signs have been stable. The patient does not have uncontrollable pain, intractable vomiting, or other significant symptoms. The patient's condition is stable and appropriate for discharge. The patient will pursue further outpatient evaluation with a primary care physician or other designated or consulting physician as indicated in the discharge instructions. The patient expressed understanding and was agreeable with this plan. Diagnosis Primary Impression: Hydronephrosis Qualified Codes: N13.39 - Other hydronephrosis Additional Impression: Hydroureter Referrals: Madhav Porter MD 1 day Patient Instructions: Flank Pain (ED), General Instructions, Hydronephrosis (ED ) Additional Instructions: Start taking a stool softener to assist with constipation that may be induced with use of pain medication. Call your urologist's office this morning for a follow-up appointment regarding the CT scan findings. Med/Other Pt SpecificInfo: No Change to Meds Disposition: 01 DISCHARGE HOME Condition: Stable Angelica Copeland MD Mar 13, 2017 04:50
[2017-03-13 04:51] LABS: BACTERIA, URINE RARE /hpf; BLOOD, URINE LARGE (NEG); COMMENT (UR) CULT NOT INDICATED; CULTURE IF INDICATED CULT NOT INDICATED; GLUCOSE,URINE NEG (NEG); HYALINE CAST, URINE 1 /lpf (RARE); KETONE, URINE NEG (NEG); MUCUS URINE MANY /lpf (OCC); NITRITE,URINE NEG (NEG); SQUAMOUS EPITHELIAL CELL URINE <1 /hpf (0-5); URINE COLOR YELLOW (YELLW/STRAW)
[2017-03-13 04:53] LABS: APTT (PATIENT) 23.1 SEC (24.3-30.1); PROTHROMBIN TIME - PATIENT 11.3 SEC (9.8-11.6)
[2017-03-13 05:09] VITALS: BP 157/94; PULSE 75; RESP 16; O2SAT 98
[2017-03-13 05:11] LABS: ALKALINE PHOSPHATASE 72 U/L (45-117); ALT (GPT) 35 U/L (12-78); ANION GAP 9 MEQ/L (5-15); AST (GOT) 28 U/L (15-37); BICARBONATE 27.1 MEQ/L (21.0-32.0); BLOOD UREA NITROGEN 12 MG/DL (7-18); CHLORIDE 100 MEQ/L (98-107); GLOMERULAR FILTRATION RATE 73 ML/MIN (>89); POTASSIUM 4.2 MEQ/L (3.5-5.1); SODIUM (NA) 136 MEQ/L (136-145); TOTAL BILIRUBIN ADULT 1.1 MG/DL (0.2-1.0)
--- NOTE | 2017-03-13 05:18 | RADRPT ---
EXAM DATE/TIME: 03/13/2017 04:58 [facility] COMPARISON: CT ABDOMEN & PELVIS W/O CONTRAST, February 24, 2017, 13:38. INDICATIONS : Left flank pain with hematuria. ORAL CONTRAST: No oral contrast ingested. RADIATION DOSE: 10.63 CTDIvol (mGy) MEDICAL HISTORY : Cardiovascular disease. Hypertension. Renal calculi. SURGICAL HISTORY : Cholecystectomy. Coronary artery stent.Hernia repair ENCOUNTER: Initial ACUITY: 1 day PAIN SCALE: 7/10 LOCATION: Left flank TECHNIQUE: Volumetric scanning of the abdomen and pelvis was performed. Using automated exposure control and ad justment of the mA and/or kV according to patient size, radiation dose was kept as low as reasonably achievable to obtain optimal diagnostic quality images. DICOM format image data is available electro nically for review and comparison. FINDINGS: Examination of the lung bases demonstrates no abnormality. No pleural fluid is identified. No pulmona ry nodules are present. The visualized portion of the liver and spleen are normal. A small hiatal her karson is present. The gallbladder is absent. The pancreas demonstrates normal contour without evidence of mass or ductal dilatation. The adrenal glands are unremarkable. The right kidney is unremarkable. There is continued left hydronephrosis and hydroureter this stone has passed. There is thickening of the posterior bladder wall the region of the trigone. Mass is not excluded. Cystoscopy is recommended for further evaluation if clinically indicated. The prostate gland is moderately enlarged impinging on the bladder base. No abnormally enlarged lymph nodes are identified. CONCLUSION: 1. Passage of the previously seen stone. 2. Continued left hydronephrosis and hydroureter. Bladder mass is not excluded. Cystoscopy is recomme nded for further evaluation if clinically indicated. Brendon Stafford MD on March 13, 2017 at 5:13 Board Certified Radiologist. This report was verified electronically.
== END 2017-03-13 06:38 | disposition home or self-care (01) ==
LOC: NEPE 03:47
DX: N13.39 Other hydronephrosis (principal)
CPT/HCPCS: 74176; 80053; 81001; 83690; 85025; 85610; 85730; 86140; 96374; 99285; J1885; J7040